=== PATIENT | female | born 1950 | race Caucasian/White ===

== ENCOUNTER 2022-02-15 06:30 | Day surgery (SDC) | payer MEDICARE, OTHER ==
[2022-02-15] MEDS ORDERED: XYLOCAINE-MPF 1% 5ML SDV IJ ONE (06:31)
[2022-02-15] MEDS ORDERED: Sodium Chloride 0.9(Preservative Free) 10 ML IJ ONE (06:31)
[2022-02-15] MEDS ORDERED: Depo-Medrol 40 MG/ML IM ONE (06:31)
[2022-02-15] MEDS ORDERED: DIPRIVAN 200 MG/20 ML IV ONE (08:42)
[2022-02-15] MEDS ORDERED: Xylocaine-Mpf 2% 5 Ml Vial ONE (08:44)
--- NOTE | 2022-02-15 10:32 | XRAY ---
Indication: Caudal NOEIM. Intraoperative fluoroscopy provided for 42 seconds. 3 digital spot images submitted for interpretation demonstrates caudal needle tip projecting mid sacrum. Small amount of contrast injected for needle tip placement. Correlate with intraoperative findings/report.
[2022-02-15] MEDS ORDERED: Lactated Ringers 1,000 ML IV ONE (10:33)
--- NOTE | 2022-02-15 10:52 | XRAY ---
42 seconds of fluoroscopy was used in surgery for a caudal NOEMI.
== END 2022-02-15 09:07 | disposition home or self-care (01) ==
LOC: SDC-PAIN 06:30
PROVIDERS: ATTEND Psychiatry & Neurology Pain Medicine
DX: M54.16 Radiculopathy, lumbar region (principal); E11.9 Type 2 diabetes mellitus without complications; Z79.899 Other long term (current) drug therapy
CPT/HCPCS: 62323; 72220; 77003; 82947; J1030; J2704; Q9966

== ENCOUNTER 2022-08-16 06:51 | Day surgery (SDC) | payer MEDICARE, OTHER ==
[2022-08-16] MEDS ORDERED: Depo-Medrol 40 MG/ML IM ONE (06:52)
[2022-08-16] MEDS ORDERED: Sodium Chloride 0.9(Preservative Free) 10 ML IJ ONE (06:52)
[2022-08-16] MEDS ORDERED: DIPRIVAN 200 MG/20 ML IV ONE (10:46)
[2022-08-16] MEDS ORDERED: Lactated Ringers 1,000 ML IV ONE (11:48)
--- NOTE | 2022-08-16 12:46 | XRAY ---
Indication: Coronal NOEMI. Intraoperative fluoroscopy provided for 24 seconds. 2 digital spot image submitted for interpretation demonstrates caudal needle tip projecting mid sacrum. Small amount of contrast injected for needle tip placement. Correlate with intraoperative findings/report. Incidental incompletely visualized bilateral lower lumbar fusion hardware.
--- NOTE | 2022-08-16 12:58 | XRAY ---
24 seconds of fluoroscopy was used in surgery for a caudal NOEMI.
== END 2022-08-16 11:25 | disposition home or self-care (01) ==
LOC: SDC-PAIN 06:51
PROVIDERS: ATTEND Psychiatry & Neurology Pain Medicine
DX: M54.16 Radiculopathy, lumbar region (principal); E11.9 Type 2 diabetes mellitus without complications; Z79.899 Other long term (current) drug therapy
CPT/HCPCS: 62323; 72220; 77003; 82947; J1030; J2704; Q9966

== ENCOUNTER 2024-08-21 07:21 | Day surgery (SDC) | payer MEDICARE, OTHER ==
[2024-08-21] MEDS ORDERED: Sodium Chloride 0.9(Preservative Free) 10 ML IJ ONE (07:22)
[2024-08-21] MEDS ORDERED: methylPREDNISolone acetate IM ONE (07:22)
[2024-08-21] MEDS ORDERED: propofoL IV ONE (09:26)
--- NOTE | 2024-08-21 11:09 | XRAY ---
27 seconds of fluoroscopy was used in surgery for a caudal NOEMI.
--- NOTE | 2024-08-21 11:09 | XRAY ---
Indication: Caudal NOEMI. Intraoperative fluoroscopy provided for 27 seconds. 3 digital spot image submitted for interpretation demonstrates caudal needle tip projecting mid sacrum. Small amount of contrast injected for needle tip placement. Correlate with intraoperative findings/report. Incidental incompletely visualized lower lumbar fusion hardware
== END 2024-08-21 10:03 | disposition home or self-care (01) ==
LOC: SDC-PAIN 07:21
PROVIDERS: ATTEND Psychiatry & Neurology Pain Medicine
DX: M54.16 Radiculopathy, lumbar region (principal); E11.9 Type 2 diabetes mellitus without complications
CPT/HCPCS: 62323; 72220; 77003; 82947; J1010; J2704; Q9966

== ENCOUNTER 2025-02-25 07:23 | Day surgery (SDC) | payer MEDICARE, OTHER ==
[2025-02-25] MEDS ORDERED: LIDOCAINE HCL 1% 50 MG/5 ML VL IJ ONE (07:24)
[2025-02-25] MEDS ORDERED: methylPREDNISolone acetate IM ONE (07:24)
[2025-02-25] MEDS ORDERED: Sodium Chloride 0.9(Preservative Free) 10 ML IJ ONE (07:24)
[2025-02-25] MEDS ORDERED: propofoL IV ONE (08:47)
[2025-02-25] MEDS ORDERED: Lactated Ringers 1,000 ML IV ONE (09:50)
--- NOTE | 2025-02-25 19:27 | XRAY ---
Indication: Caudal NOEMI. Intraoperative fluoroscopy provided for 18 seconds. 2 digital spot image submitted for interpretation demonstrates caudal needle tip projecting mid sacrum. Small amount of contrast injected for needle tip placement. Correlate with intraoperative findings/report.
--- NOTE | 2025-02-25 19:29 | XRAY ---
Indication: Bilateral piriformis injection. Intraoperative fluoroscopy provided for 21 seconds. 2 digital spot image submitted for interpretation demonstrates posterior needle tip projecting over left and right piriformis. Small amount of contrast injected for needle tip placement. Correlate with intraoperative findings/report.
--- NOTE | 2025-02-25 19:37 | XRAY ---
21 seconds of fluoroscopy was used in surgery for a bilateral piriformis injection.
--- NOTE | 2025-02-25 19:37 | XRAY ---
18 seconds of fluoroscopy was used in surgery for a caudal NOEMI.
== END 2025-02-25 09:26 | disposition home or self-care (01) ==
LOC: SDC-PAIN 07:23
PROVIDERS: ATTEND Psychiatry & Neurology Pain Medicine
DX: M54.16 Radiculopathy, lumbar region (principal); M79.18 Myalgia, other site; E11.9 Type 2 diabetes mellitus without complications